=== PATIENT | female | born 1965 | race Caucasian/White ===

== ENCOUNTER 2019-04-10 21:14 | Emergency (ER) | payer OTHER | END 2019-04-10 23:21 | disposition home or self-care (01) | LOC: FER 21:14 ==

== ENCOUNTER 2019-06-17 19:30 | Emergency (ER) | payer OTHER ==
--- NOTE | 2019-06-17 20:10 | PDOC ---
Rapid Medical Evaluation Time Seen by Provider: 06/17/19 20:05 Medical Evaluation: Allergies Allergy/AdvReac Type Severity Reaction Status Date / Time No Known Allergies Allergy Unverified 05/04/18 14:28 06/17/19 20:05 I have performed a brief in-person evaluation of this patient. The patient presents with a chief complaint of: 2 syncopal episodes today. She passed out and fell down the stairs, (+)LOC, then (+)vomiting. Went to urgent care, was sent home. Denies CP prior to incident Pertinent physical exam findings: Pt looks uneasy. R sided temporal hematoma I have ordered the following: EKG, CBC, CMP, cardiac enzymes, CT head and C spine. The patient will proceed to the ED for further evaluation. 06/17/19 20:13 Discharge Disposition - Diagnosis Syncope - Referrals - Patient Instructions - Post Discharge Activity
[2019-06-17 20:11] VITALS: BP 166/87; PULSE 112; TEMP 98.6; BMI 28.3
--- NOTE | 2019-06-17 21:44 | PDOC ---
History of Present Illness - General Chief Complaint: Injury Stated Complaint: FALL Time Seen by Provider: 06/17/19 20:05 History Source: Patient Exam Limitations: No Limitations - History of Present Illness Initial Comments: 06/17/19 21:41 Debbi Clark is a 53y previously healthy F presenting w head trauma s/p fall. This morning 11am, woke up feeling clammy/nauseous, fell down 10 hardwood steps from 2nd floor attempting to walk to 1st floor bathroom. LOCx2 at home, vomited x2 (home, urgent care). Took few hrs nap, went to urgent care, R mandible XR did not show fracture, given medication for nausea, sent to ED for further care. Currently complaining of R sided headache, neck/shoulder pain, general body aches and bruising. Had at least 4 alcoholic drinks last night. Denies fever, vision change, cough, SOB, chest/AB pain, urinary/bowel movement changes Past History - Past Medical History Allergies/Adverse Reactions: Allergies Allergy/AdvReac Type Severity Reaction Status Date / Time No Known Allergies Allergy Unverified 06/17/19 20:10 Home Medications: Ambulatory Orders NK [No Known Home Medication] 04/10/19 Cardiac Disorders: No Hx Myocardial Infarction: No COPD: No CHF: No Diabetes: No HTN: No Hypercholesterolemia: No - Surgical History Abdominal Surgery: Yes (2 C-sections, tummy tuck) - Psycho Social/Smoking Cessation Hx Smoking History: Never smoked Have you smoked in the past 12 months: No If you are a former smoker, when did you quit?: 25 YEARS Information on smoking cessation initiated: No Hx Alcohol Use: Yes (3 nights a week, glass of wine) Drug/Substance Use Hx: No Substance Use Type: Alcohol Review of Systems - Review of Systems Constitutional: No: Chills, Fever HEENTM: Yes: Other (R jaw pain). No: Eye Pain, Recent change in vision, Nose Pain, Throat Pain Respiratory: No: Cough, Shortness of Breath Cardiac (ROS): No: Chest Pain, Palpitations, Syncope ABD/GI: Yes: Nausea, Vomiting. No: Abdominal Distended, Constipated, Diarrhea : No: Burning, Dysuria, Discharge, Frequency, Flank Pain Musculoskeletal: Yes: Muscle Pain (R neck, shoulder). No: Back Pain Integumentary: Yes: Bruising. No: Dryness, Erythema Neurological: Yes: Headache. No: Numbness, Seizure, Tingling, Tremors Psychiatric: No: Anxiety, Depression, Stressors Endocrine: No: Excessive Sweating, Flushing, Intolerance to Cold, Intolerance to Heat Hematologic/Lymphatic: No: Anemia, Blood Clots *Physical Exam - Vital Signs Last Vital Signs Temp Pulse Resp BP Pulse Ox 98.6 F 112 H 18 166/87 100 06/17/19 20:08 06/17/19 20:08 06/17/19 20:08 06/17/19 20:08 06/17/19 20:08 - Physical Exam General Appearance: Yes: Nourished, Appropriately Dressed, Mild Distress HEENT: positive: EOMI, ANGELI, Normal Voice, Hearing Grossly Normal, Other (3cm abrasion R mandible). negative: Scleral Icterus (R), Scleral Icterus (L), Nasal Congestion, Rhinorrhea Neck: positive: Trachea midline, Supple, Tender lateral (mildly tender R trapezius, paraspinal), Other (no vertebral stepoffs). negative: Rigid, Tender midline Respiratory/Chest: positive: Lungs Clear, Normal Breath Sounds. negative: Chest Tender, Respiratory Distress, Crackles, Rales, Rhonchi, Stridor, Wheezing Cardiovascular: positive: Regular Rhythm, S1, S2, Tachycardia. negative: Edema , Murmur Gastrointestinal/Abdominal: positive: Normal Bowel Sounds, Flat, Soft. negative : Tender, Organomegaly Musculoskeletal: negative: CVA Tenderness (R), CVA Tenderness (L) Extremity: positive: Other (R arm full ROM). 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 negative: Numbness, Sensory Deficit, Confused, Disoriented ED Treatment Course - LABORATORY CBC & Chemistry Diagram: 06/17/19 22:00 06/17/19 22:00 - RADIOLOGY Radiology Studies Ordered: Category Date Time Status SHOULDER-RIGHT [RAD] Stat Radiology 06/17/19 21:36 Ordered Medical Decision Making - Medical Decision Making 06/17/19 22:16 CBC CMP trop HCG coags head/c-spine CT EKG CXR R shoulder XR UA Given tylenol, reglan for pain, 1L NS for dehydration EKG shows NSR, HR 63, QTc 417, no ST changes CXR shows clear lung alejandre R shoulder XR shows no fracture/dislocation Head/c-spine CT shows no acute bleed/infarct/fracture, chronic osteochondritis C5-6 CBC, coags, CMP normal, no infection on UTI neg trop, HCG CK 263 --- Debbi Clark is a 53y previously healthy F presenting w head trauma s/p fall. Neuro intact. Head/c-spine CT did not show acute bleed/infarct/fracture. Not . No evidence of ACS (neg tropx2, NSR EKG), no UTI, no evidence of lung infection, not . Given tylenol, reglan for pain, 1L NS for dehydration. D/c home w PCP f/u Discharge - Discharge Information Problems reviewed: Yes Clinical Impression/Diagnosis: Fall down steps Qualifiers: Encounter type: initial encounter Qualified Code(s): W10.8XXA - Fall (on) (from ) other stairs and steps, initial encounter Headache Qualifiers: Headache type: post-traumatic Headache chronicity pattern: acute headache Intractability: not intractable Qualified Code(s): G44.319 - Acute post- traumatic headache, not intractable Condition: Good Disposition: HOME - Admission No - Follow up/Referral Referrals: Brina Baxter MD [Primary Care Provider] - - Patient Discharge Instructions Patient Printed Discharge Instructions: DI for Post-traumatic Headache Additional Instructions: You were seen for headache after falling. Your labs and imaging do not show anything concerning. You were given medication for your headache. Please follow up with your primary care doctor regarding your visit. You can take tylenol or ibuprofen as directed on packaging if you continue to have pain. Come back to the ED if you have worsening pain, vomiting, or vision changes. - Post Discharge Activity
[2019-06-17] MEDS ORDERED: ACETAMINOPHEN 1000 MG/100 ML VIAL (NON FORMULARY) IVPB ONE (21:58)
[2019-06-17] MEDS ORDERED: SODIUM CHLORIDE 0.9% 500 ML INFUS.BAG IV ONE (21:58)
[2019-06-17] MEDS ORDERED: ACETAMINOPHEN INJECTION 100 ML IVPB ONE (22:09)
[2019-06-17 22:12] LABS: BASO % 1.2 % (0-2.0); EOS % 0.2 % (0-4.5); HEMATOCRIT 38.7 % (32.4-45.2); HEMOGLOBIN 12.8 GM/dL (10.7-15.3); LYMPH % 19.2 % (8-40); MCH 30.1 pg (25.7-33.7); MCHC 33.1 g/dl (32.0-36.0); MEAN CELL VOLUME 90.8 fl (80-96); MEAN PLT VOLUME 8.6 fl (7.5-11.1); MONO % 8.3 % (3.8-10.2); NEUT % 71.1 % (42.8-82.8); PLATELET COUNT 258 K/MM3 (134-434); RBC 4.26 M/mm3 (3.60-5.2); WHITE BLOOD COUNT 9.4 K/mm3 (4.0-10.0)
[2019-06-17 22:24] LABS: INR 0.92 (0.83-1.09); PROTHROMBIN TIME (PATIENT) 10.9 SEC (9.7-13.0)
--- NOTE | 2019-06-17 22:43 | PDOC ---
Documentation entered by Lou Kingston SCRIBE, acting as scribe for Lacie Perez MD. Lacie Perez MD: This documentation has been prepared by the khushiibe, Lou Kingston SCRIBE, under my direction and personally reviewed by me in its entirety. I confirm that the documentation accurately reflects all work, treatment, procedures, and medical decision making performed by me. Attending Attestation - Resident Resident Name: Christopher Rueda - ED Attending Attestation I have performed the following: I have examined & evaluated the patient, The case was reviewed & discussed with the resident, I agree w/resident's findings & plan, Exceptions are as noted - HPI HPI: 06/17/19 21:59 53-year-old woman states that she was very nauseous today and fell down a flight of [address] on her way to the bathroom. She states she was holding onto the handrail feeling very nauseous and then all of a sudden she found herself at the bottom of the stairs. She has complaint of headache, right -sided jaw pain, bruising to her right arm and generalized soreness. - Physicial Exam PE: 06/17/19 22:38 Nourished well-developed 53-year-old female presents with scattered bruising to her upper torso and complaint of headache status post a fall Head no scalp lacerations or notable hematomas Face shows ecchymosis to right temporal area, bruising to left side of her face Oral exam which she has reproducible occlusion, no fractured teeth, there is some right pre-auricular tenderness No midline cervical vertebral tenderness, there is trapezius muscle tenderness and paraspinal muscle tenderness No thoracic or lumbar spinal tenderness and no flank ecchymosis Extremities she has tenderness to the right shoulder and scattered bruising to her right upper arm Lungs are clear to auscultation bilaterally CVS regular rate and rhythm S1-S2 Abdomen no tenderness, no guarding, no ecchymosis There is no hip pain and she is able to ambulate with ease Neuro alert and oriented x3, motor strength 5 out of 5 bilaterally, no ataxia - Medical Decision Making 06/18/19 00:42 CAT scan of the head all was normal. There is no calvarial, no facial or skull base fractures. No intracranial hemorrhages or brain parenchymal contusion injuries CAT scan of the cervical spine was negative for any cervical spine fractures or dislocations there was no evidence of prevertebral soft tissue swelling The cranial cervical junction appeared normal -there was chronic advanced intervertebral osteochondrosis at C5-C6 otherwise unremarkable study LABS unremarkable -both cardiac enzymes negative -ekg nsr @ 63 bpm imp trauma to arms and torso/contusions/bruising d/c home 06/18/19 00:54
[2019-06-17 22:50] LABS: ALBUMIN 3.8 g/dl (3.4-5.0); ALK PHOS 47 U/L (45-117); ANION GAP 9 MMOL/L (8-16); BILIRUBIN,TOTAL 0.4 mg/dL (0.2-1); BLOOD UREA NITROGEN 10.9 mg/dL (7-18); CALCIUM 8.9 mg/dL (8.5-10.1); CHLORIDE 107 mmol/L (98-107); CO2 24 mmol/L (21-32); CREATININE 0.7 mg/dL (0.55-1.3); GLUCOSE,RANDOM 92 mg/dL (74-106); POTASSIUM 4.1 mmol/L (3.5-5.1); SGOT/AST 21 U/L (15-37); SGPT/ALT 21 U/L (13-61); SODIUM 140 mmol/L (136-145); TOT PROT 6.9 g/dl (6.4-8.2)
[2019-06-17 23:02] LABS: EPI CELLS 0.5 /HPF (0-5/HPF); HYALINE CASTS 1 /lpf (0-8); PH,URINE 5.5 (5.0-8.0); URINE APPEARANCE CLEAR; URINE BACTERIA 5.7 /hpf (NEGATIVE); URINE BILIRUBIN NEGATIVE (NEGATIVE); URINE COLOR YELLOW; URINE GLUCOSE (UA) NEGATIVE (NEGATIVE); URINE KETONE NEGATIVE (NEGATIVE); URINE LEUK ESTERASE NEGATIVE (NEGATIVE); URINE NITRITE NEGATIVE (NEGATIVE); URINE PROTEIN NEGATIVE (NEGATIVE); URINE RBC 252 /hpf (0-4); URINE UROBILINOGEN 0.2 mg/dL (0.2-1.0); URINE WBC 0 /hpf (0-5)
[2019-06-17] MEDS ORDERED: METOCLOPRAMIDE HCL INJECTION 10 MG/2 ML VIAL IVPB ONE (23:58)
[2019-06-18] MEDS ORDERED: METOCLOPRAMIDE HCL INJECTION 10 MG/2 ML VIAL ONE (00:13)
--- NOTE | 2019-06-18 12:51 | EKG ---
Test Reason : Blood Pressure : / mmHG Vent. Rate : 063 BPM Atrial Rate : 063 BPM P-R Int : 192 ms QRS Dur : 068 ms QT Int : 408 ms P-R-T Axes : 049 070 045 degrees QTc Int : 417 ms NORMAL SINUS RHYTHM LOW VOLTAGE QRS SEPTAL INFARCT , AGE UNDETERMINED ABNORMAL ECG NO PREVIOUS ECGS AVAILABLE Confirmed by Luis Mata MD ([id number]) on 06/18/2019 12:51:37 PM Referred By: Confirmed By:Luis Mata MD
== END 2019-06-18 01:17 | disposition home or self-care (01) ==
LOC: JER 19:30
PROC: 3E033NZ Introduction of Analgesics, Hypnotics, Sedatives into Peripheral Vein, Percutaneous Approach (ICD-10-PCS; principal; 2019-06-17)
PROC: 3E033GC Introduction of Other Therapeutic Substance into Peripheral Vein, Percutaneous Approach (ICD-10-PCS; 2019-06-17)
DX: G44.319 Acute post-traumatic headache, not intractable (principal); R68.84 Jaw pain; S40.021A Contusion of right upper arm, initial encounter; S70.01XA Contusion of right hip, initial encounter; S80.11XA Contusion of right lower leg, initial encounter; W10.8XXA Fall (on) (from) other stairs and steps, initial encounter; Y93.89 Activity, other specified; Y92.018 Other place in single-family (private) house as the place of occurrence of the external cause; Y99.8 Other external cause status
CPT/HCPCS: 36415; 70450-TC; 71046-TC-FY; 72125-TC; 73030-TC-RT-FY; 80053; 81003; 82550; 82553; 84484; 84703; 85025; 85610; 87086; 93005; 93010; 99283-25; J0131

== ENCOUNTER → 2020-04-02 | Day surgery (SDC) | payer OTHER ==
--- NOTE | 2020-04-06 13:39 | PATH ---
Cytology Non-Gynecological Report Patient Name: CHICO MARTINEZ [facility]. Rec. #: [id number] /Age/Gender: 1965 (Age: 54) / F Account: [id number] Location: RADIOLOGY INTER Taken: 04/02/2020 Received: 04/02/2020 Reported: 04/06/2020 Physicians: Tadeo Espana M.D. Specimen(s) Received LEFT LOBE THYROID FNA Clinical History Left thyroid nodule 2.46 x 1.28 x 1.44 cm Final Diagnosis THYROID, LEFT, FINE NEEDLE ASPIRATION: SATISFACTORY FOR EVALUATION BETHESDA CLASS II: BENIGN SHEETS OF FOLLICULAR CELLS AND COLLOID PRESENT, CONSISTENT WITH A BENIGN FOLLICULAR NODULE. Electronically Signed Ander Gifford M.D. Gross Description Received are eight direct smears, four of which are air-dried and Diff-Quik stained, and four of which are alcohol fixed and Pap stained. Also received is 20 ml of bloody fluid from which one cellblock is prepared.
== END | disposition home or self-care (01) ==
LOC: JRADIR 10:04
PROVIDERS: ATTEND Internal Medicine Endocrinology, Diabetes & Metabolism
PROC: 0G9G3ZX Drainage of Left Thyroid Gland Lobe, Percutaneous Approach, Diagnostic (ICD-10-PCS; principal; 2020-04-02)
DX: E04.1 Nontoxic single thyroid nodule (principal)
CPT/HCPCS: 76942; 88173; 88305-TC

== ENCOUNTER 2024-07-14 10:51 | Inpatient (IN) | payer OTHER ==
[2024-07-14] MEDS: SODIUM CHLORIDE 1,000 ML IV STA (11:53)
[2024-07-14 12:27] LABS: HEMATOCRIT 42.1 % (32.4-45.2); HEMOGLOBIN 14.1 G/dL (10.7-15.3); MCH 31.3 pg (25.7-33.7); MCHC 33.5 g/dl (32.0-36.0); MEAN CELL VOLUME 93.5 fl (80-96); MEAN PLT VOLUME 9.2 fl (7.5-11.1); PLATELET COUNT 267.8 10^3/uL (134-434); RDW 12.7 % (11.6-15.6); WHITE BLOOD COUNT 7.4 10^3/uL (4.0-10.8)
[2024-07-14 12:30] LABS: PLATELET ESTIMATE ADEQUATE
[2024-07-14 12:49] LABS: CREATININE 0.6 mg/dl (0.6-1.3)
[2024-07-14 12:50] LABS: ALBUMIN 4.1 g/dl (3.4-5.0); BILIRUBIN,TOTAL 0.4 mg/dl (0.2-1); CALCIUM 9.1 mg/dl (8.5-10.1); POTASSIUM 4.4 mmol/L (3.5-5.1); TOT PROT 6.4 g/dl (6.4-8.2)
[2024-07-14 14:39] LABS: INR 0.93 (0.83-1.09); PROTHROMBIN TIME (PATIENT) 10.6 SEC (9.7-13.0)
[2024-07-14] MEDS ORDERED: PIPERACILLIN/TAZOBACTAM 3.375 GM VIAL IVPB ONE (15:09)
[2024-07-14] MEDS: PIPERACILLIN/TAZOB 3.375 GM 3.375 GM in DEXTROSE 5%-WATER - 50 ML IVPB ONE (15:15)
[2024-07-14] MEDS ORDERED: ACETAMINOPHEN 1000 MG/100 ML BAG IVPB PRN (17:12)
[2024-07-14 17:53] VITALS: BMI 32.1
[2024-07-14] MEDS: DEXTROSE 5%-0.45% SALINE 1,000 ML IV SCH (18:34)
[2024-07-14] MEDS ORDERED: PIPERACILLIN/TAZOB 3.375 GM 3.375 GM in DEXTROSE 5%-WATER - 50 ML IVPB SCH (18:45)
[2024-07-14] MEDS ORDERED: KETOROLAC TROMETHAMINE 15 MG/ML VIAL IVPUSH PRN (18:47)
[2024-07-14] MEDS: PIPERACILLIN/TAZOB 3.375 GM 50 ML IVPB SCH (21:11)
[2024-07-14] MEDS: HEPARIN NA (PORCINE) 5,000 UNITS/ML 1ML VIAL SQ SCH (21:11)
[2024-07-15 09:41] LABS: BASO % 0.8 % (0-2.0); EOS % 7.1 % (0-4.5); HEMATOCRIT 37.4 % (32.4-45.2); HEMOGLOBIN 12.8 GM/dL (10.7-15.3); LYMPH % 27.1 % (8-40); MCH 31.6 pg (25.7-33.7); MCHC 34.2 g/dl (32.0-36.0); MEAN CELL VOLUME 92.4 fl (80-96); MEAN PLT VOLUME 8.4 fl (7.5-11.1); MONO % 11.6 % (3.8-10.2); NEUT % 53.4 % (42.8-82.8); PLATELET COUNT 260 10^3/uL (134-434); RBC 4.05 M/mm3 (3.60-5.2); RDW 12.7 % (11.6-15.6); WHITE BLOOD COUNT 5.7 K/mm3 (4.0-10.0)
[2024-07-15] MEDS: ENOXAPARIN NA (PORCINE) 40 MG/0.4 ML DISP.SYRIN SQ SCH (09:56)
[2024-07-15 10:03] LABS: ALBUMIN 2.8 g/dl (3.4-5.0); CALCIUM 8.1 mg/dL (8.5-10.1)
[2024-07-15 10:04] LABS: BLOOD UREA NITROGEN 5.4 mg/dL (7-18)
[2024-07-15 10:08] LABS: BILIRUBIN,TOTAL 0.4 mg/dL (0.2-1); CREATININE 0.6 mg/dL (0.55-1.3); TOT PROT 5.6 g/dl (6.4-8.2)
[2024-07-15] MEDS ORDERED: PIPERACILLIN/TAZOB 3.375 GM 3.375 GM/50 ML BAG IVPB SCH (12:45)
[2024-07-15] MEDS ORDERED: PIPERACILLIN/TAZOB 3.375 GM 50 ML IVPB SCH (12:59)
[2024-07-15] MEDS: PIPERACILLIN/TAZOB 3.375 GM 50 ML IVPB SCH (13:32)
[2024-07-16 09:49] LABS: BASO % 1.2 % (0-2.0); HEMATOCRIT 39.5 % (32.4-45.2); HEMOGLOBIN 13.4 GM/dL (10.7-15.3); LYMPH % 29.4 % (8-40); MCH 31.5 pg (25.7-33.7); MEAN CELL VOLUME 92.7 fl (80-96); MEAN PLT VOLUME 8.2 fl (7.5-11.1); MONO % 12.8 % (3.8-10.2); NEUT % 47.6 % (42.8-82.8); PLATELET COUNT 291 10^3/uL (134-434); RBC 4.26 M/mm3 (3.60-5.2); RDW 12.9 % (11.6-15.6); WHITE BLOOD COUNT 3.6 K/mm3 (4.0-10.0)
[2024-07-16 12:14] LABS: POTASSIUM 3.9 mmol/L (3.5-5.1)
[2024-07-16 12:16] LABS: CALCIUM 8.5 mg/dL (8.5-10.1)
[2024-07-16 12:17] LABS: BLOOD UREA NITROGEN 3.3 mg/dL (7-18); MAGNESIUM 2.3 mg/dL (1.8-2.4)
[2024-07-16 12:20] LABS: CREATININE 0.6 mg/dL (0.55-1.3)
[2024-07-16 12:21] LABS: BILIRUBIN,TOTAL 0.3 mg/dL (0.2-1); TOT PROT 6.2 g/dl (6.4-8.2)
[2024-07-16 15:13] VITALS: RESP 18
[2024-07-16] MEDS ORDERED: ACETAMINOPHEN 325 MG TABLET (FP) PO PRN (15:41)
[2024-07-17 06:42] VITALS: TEMP 97.7
[2024-07-17 10:30] LABS: HEMATOCRIT 38.8 % (32.4-45.2); HEMOGLOBIN 13.1 GM/dL (10.7-15.3); LYMPH % 29.1 % (8-40); MCH 31.5 pg (25.7-33.7); MCHC 33.7 g/dl (32.0-36.0); MEAN CELL VOLUME 93.4 fl (80-96); MEAN PLT VOLUME 7.9 fl (7.5-11.1); MONO % 12.4 % (3.8-10.2); NEUT % 51.5 % (42.8-82.8); PLATELET COUNT 289 10^3/uL (134-434); RBC 4.15 M/mm3 (3.60-5.2); RDW 12.4 % (11.6-15.6); WHITE BLOOD COUNT 4.2 K/mm3 (4.0-10.0)
[2024-07-17 11:01] LABS: POTASSIUM 3.9 mmol/L (3.5-5.1)
[2024-07-17 11:04] LABS: CALCIUM 8.7 mg/dL (8.5-10.1)
[2024-07-17 11:08] LABS: CREATININE 0.7 mg/dL (0.55-1.3)
[2024-07-17 11:09] LABS: BLOOD UREA NITROGEN 4.4 mg/dL (7-18)
[2024-07-17 11:10] LABS: TOT PROT 6.3 g/dl (6.4-8.2)
[2024-07-17 11:13] LABS: BILIRUBIN,TOTAL 0.2 mg/dL (0.2-1)
[2024-07-17 12:18] VITALS: BP 134/82; PULSE 73
[2024-07-17] MEDS ORDERED: AMOX TR/POT CLAV 875MG/125MG TABLETS (FP) PO SCH (17:30)
== END 2024-07-17 13:30 | disposition home or self-care (01) | DRG 248 ==
LOC: FER 10:51 → J8W 17:26
PROVIDERS: ADMIT Internal Medicine; ATTEND Nurse Practitioner Acute Care
DX: K35.32 Acute appendicitis with perforation, localized peritonitis, and gangrene, without abscess (principal); K57.32 Diverticulitis of large intestine without perforation or abscess without bleeding; K40.90 Unilateral inguinal hernia, without obstruction or gangrene, not specified as recurrent; E66.9 Obesity, unspecified; Z68.32 Body mass index [BMI] 32.0-32.9, adult
CPT/HCPCS: 36415; 74177-TC; 80053; 81003; 83690; 83735; 85025; 85027; 85610; 86850; 86900; 86901; 99285-25

== ENCOUNTER 2025-03-15 12:52 | Emergency (ER) | payer OTHER ==
[2025-03-15 13:06] VITALS: BP 129/82; PULSE 87; RESP 18; TEMP 98.2; BMI 28.1
[2025-03-15] MEDS ORDERED: LIDOCAINE 5% TOPICAL PATCH ONE (14:15)
[2025-03-15] MEDS ORDERED: IBUPROFEN 600 MG TABLET (FP) PO ONE (14:16)
[2025-03-15] MEDS ORDERED: IBUPROFEN 400 MG TABLET (FP) PO ONE (14:17)
[2025-03-15] MEDS: IBUPROFEN 400 MG TABLET (FP) PO ONE (14:21)
[2025-03-15] MEDS: LIDOCAINE 5% TOPICAL PATCH TP ONE (14:21)
[2025-03-15] MEDS: CEPHALEXIN MONOHYDRATE 500 MG CAPSULE (UD) PO ONE (14:28)
[2025-03-15] MEDS: PHENAZOPYRIDINE HCL 100 MG TABLET (FP) PO ONE (14:28)
[2025-03-16] MEDS ORDERED: LIDOCAINE PATCH REMOVAL MC SCH (01:00)
== END 2025-03-15 14:38 | disposition home or self-care (01) ==
LOC: FER 12:52
DX: N39.0 Urinary tract infection, site not specified (principal); R31.9 Hematuria, unspecified; R35.0 Frequency of micturition; R30.0 Dysuria; R39.15 Urgency of urination
CPT/HCPCS: 81003; 81015; 81025; 87086; 99283-25

== ENCOUNTER 2025-04-04 15:43 | Observation (INO) | payer OTHER ==
[2025-04-04] MEDS ORDERED: ACETAMINOPHEN INJECTION 100 ML ONE (16:09)
[2025-04-04] MEDS: ACETAMINOPHEN 1000 MG/100 ML BAG IVPB ONE (16:10)
[2025-04-04] MEDS: SODIUM CHLORIDE 1,000 ML IV STA (16:24)
[2025-04-04 16:40] LABS: MCHC 33.6 g/dl (32.2-35.5); MEAN CELL VOLUME 94.2 fl (79.4-94.8); MEAN PLT VOLUME 9.5 fl (9.4-12.3); RDW 12.0 % (12.3-16.6)
[2025-04-04 17:24] LABS: ALK PHOS 67.0 U/L (45-117); CO2 27.0 mmol/L (21-32); CREATININE 0.7 mg/dl (0.6-1.3); GLUCOSE,RANDOM 120.0 mg/dl (74-106); SGOT/AST 14.0 U/L (15-37); SGPT/ALT 15.0 U/L (7-52); TOT PROT 7.1 g/dl (6.4-8.2)
[2025-04-04] MEDS ORDERED: KETOROLAC TROMETHAMINE 15 MG/ML VIAL IVPUSH PRN (20:07)
[2025-04-04] MEDS ORDERED: DOCUSATE SODIUM 100 MG CAPSULE (FP) PO PRN (20:07)
[2025-04-04] MEDS: CEFTRIAXONE 1,000 MG in DEXTROSE 5%-WATER - 50 ML IVPB ONE (20:08)
[2025-04-04 21:14] VITALS: BMI 31.6
[2025-04-04 21:14] LABS: HIV INTERPRETATION NEGATIVE (NEGATIVE)
[2025-04-04 21:15] LABS: HCV DIAGNOSTIC IN-HOUSE W/RFLX NON-REACTIVE (NONREACTIVE)
[2025-04-04] MEDS: ACETAMINOPHEN 500 MG TABLET (FP) PO PRN (23:16)
[2025-04-05 08:19] LABS: ABSOLUTE IMMATURE GRANULOCYTES 0.04 x10^3/uL (0.0-0.031); BASOPHILS # 0.03 x10^3/uL (0.01-0.08); EOSINOPHIL % 0.4 % (0.7-5.8); EOSINOPHILS # 0.05 x10^3/uL (0.04-0.36); MCHC 32.9 g/dl (32.2-35.5); MEAN CELL VOLUME 95.9 fl (79.4-94.8); MEAN PLT VOLUME 10.3 fl (9.4-12.3); MONOCYTE # 1.11 x10^3/uL (0.24-0.86); MONOCYTE % 9.7 % (4.7-12.5); RDW 12.2 % (12.3-16.6)
[2025-04-05 08:48] LABS: CO2 28.0 mmol/L (21-32); CREATININE 0.7 mg/dl (0.6-1.3); GLUCOSE,RANDOM 106.0 mg/dl (74-106)
[2025-04-05] MEDS: CEFTRIAXONE 1 GM in DEXTROSE 5%-WATER - 50 ML IVPB SCH (09:44)
[2025-04-05] MEDS: ENOXAPARIN NA (PORCINE) 40 MG/0.4 ML DISP.SYRIN SQ SCH (09:58)
[2025-04-05] MEDS: MELATONIN 5 MG TABLETS PO PRN (21:19)
[2025-04-05] MEDS: LACTOBACILLUS ACIDOPHILUS 1 TABLET PO SCH (21:19)
[2025-04-06 09:02] LABS: ALK PHOS 53.0 U/L (45-117); CO2 28.0 mmol/L (21-32); CREATININE 0.8 mg/dl (0.6-1.3); GLUCOSE,RANDOM 116.0 mg/dl (74-106); SGOT/AST 13.0 U/L (15-37); SGPT/ALT 14.0 U/L (7-52); TOT PROT 6.3 g/dl (6.4-8.2)
[2025-04-06 09:09] LABS: ABSOLUTE IMMATURE GRANULOCYTES 0.03 x10^3/uL (0.0-0.031); BASOPHILS # 0.04 x10^3/uL (0.01-0.08); EOSINOPHIL % 0.9 % (0.7-5.8); EOSINOPHILS # 0.06 x10^3/uL (0.04-0.36); MCHC 32.2 g/dl (32.2-35.5); MEAN CELL VOLUME 96.6 fl (79.4-94.8); MEAN PLT VOLUME 10.2 fl (9.4-12.3); MONOCYTE # 0.85 x10^3/uL (0.24-0.86); MONOCYTE % 12.1 % (4.7-12.5); RDW 12.1 % (12.3-16.6)
[2025-04-07 07:46] LABS: MCHC 33.5 g/dl (32.2-35.5); MEAN CELL VOLUME 94.7 fl (79.4-94.8); MEAN PLT VOLUME 9.7 fl (9.4-12.3); RDW 11.8 % (12.3-16.6)
[2025-04-07 09:19] LABS: CO2 26.0 mmol/L (21-32); CREATININE 0.6 mg/dl (0.6-1.3); GLUCOSE,RANDOM 122.0 mg/dl (74-106)
[2025-04-07 10:25] VITALS: BP 120/89; PULSE 72; RESP 16; TEMP 98.1
== END 2025-04-07 13:48 | disposition home or self-care (01) ==
LOC: FER 15:43 → FM/S 20:00
PROVIDERS: ATTEND Student in an Organized Health Care Education/Training Program
DX: N12 Tubulo-interstitial nephritis, not specified as acute or chronic (principal); Z87.891 Personal history of nicotine dependence
CPT/HCPCS: 36415; 74177-TC; 80048; 80053; 81003; 81015; 83735; 85025; 85027; 86803; 87040; 87086; 87389; 99285-25; G0378; Q9967